=== PATIENT | male | born 1995 | race Caucasian/White ===

== ENCOUNTER 2020-01-30 16:18 | Emergency (ER) | payer OTHER, SELFPAY ==
[2020-01-30 16:28] VITALS: BP 166/74; PULSE 67; RESP 20; TEMP 37.4; O2SAT 98
--- NOTE | 2020-01-30 16:35 | ED.NECK ---
HPI - Neck Pain/Injury General Chief Complaint: Neck Pain/Injury Stated Complaint: neck pain Time Seen by Provider: 01/30/20 16:39 Source: patient and RN notes reviewed Mode of arrival: ambulatory Limitations: no limitations History of Present Illness HPI Narrative: This is a 24 years old male presents to the office for an evaluation of headache and neck pain since this morning. He has pain this morning after he exercise. Associated with headache. He did a squad weight lifting ~380slb yesterday. Today, he did a shoulder weight lift about ~150lbs weight. Denies head injury/heard any pop/noise. Denies worse headache of his life. He took 1000mg of Tylenol for pain with no relief. Related Data Allergies Allergy/AdvReac Type Severity Reaction Status Date / Time No Known Allergies Allergy Verified 01/30/20 16:39 Review of Systems Review of Systems: Narrative: CONSTITUTIONAL: Denies fever, chills EYES: Denies visual changes ENT: Denies difficulty swallowing CARDIOVASCULAR: Denies chest pain, palpitation RESPIRATORY: Denies dyspnea GASTROINTESTINAL: Denies abdominal pain, vomiting. Reports nausea. SKIN: Denies rash MUSCULOSKELETAL: Reports neck pain without numbness or tingling in extremities. NEUROLOGIC: Denies lightheaded/dizziness All other systems reviewed are negative, except as documented in HPI. PMFSH Comments At time of signature, I agree with nursing past medical, surgical, social and family history. There is no relevant family history pertinent to the presenting complaint. Exam Narrative: Exam Narrative: GENERAL: This is a well-nourished, well-developed patient, in no apparent distress. NECK: No surface trauma, open wounds, soft tissue or muscle tenderness or spasm.Nontender over larynx. No bony tenderness, step-off or deformity to firm palpation at the posterior midline. FROM without limitation or pain; normal flexion, extension, lateral bending, rotation and axial load. CARDIOVASCULAR: Regular rate and rhythm without murmurs, gallops, or rubs. RESPIRATORY: Clear to auscultation. Breath sounds equal bilaterally. No wheezes, rales, or rhonchi. GASTROINTESTINAL: Abdomen soft, non-tender, nondistended. Bowel sounds are active. No hepato-splenomegaly, or palpable masses. No guarding. SKIN: warm, intact with no suspicious lesions or rash, good texture and turgor. NEURO: awake, alert, and oriented to person, place and time. There were no obvious focal neurologic abnormalities. Steady gait EXTREMITIES: Normal range of motion. No edema. BACK: midline without tenderness over the vertebra. [place] Coma Scale Eye Opening: Spontaneous 4 [place] Coma Scale Motor: Obeys Commands 6 [place] Coma Scale Verbal: Oriented 5 Course Vital Signs Vital signs: Vital Signs Temperature 99.3 F 01/30/20 16:28 Pulse Rate 67 01/30/20 16:28 Respiratory Rate 20 01/30/20 16:28 Blood Pressure 166/74 H 01/30/20 16:28 Pulse Oximetry 98 01/30/20 16:28 Temperature 99.3 F 01/30/20 16:28 Pulse Rate 67 01/30/20 16:28 Respiratory Rate 01/30/20 16:28 Blood Pressure 166/74 H 01/30/20 16:28 Pulse Oximetry 98 01/30/20 16:28 MDM - Neck Pain/Injury MDM Narrative Medical decision making narrative: Elevated BP noted: patient is informed that they may have pre-hypertension or hypertension based on a blood pressure reading in the department. I recommend the patient call the primary care provider listed on their discharge instructions or a physician of their choice this week to arrange follow-up for further evaluation of possible pre-hypertension or hypertension within 1-2week. Discharge instructions reviewed with patient, as well as provided in writing per nursing staff. The instructions also include specific and strict return/GO TO THE ER as well as f/u information. All questions have been answered, and the patient deny any further questions with discharge and discharge plan. Differential Diagnosis Differential
== END 2020-01-30 17:05 | disposition home or self-care (01) ==
PROVIDERS: Emergency Provider Nurse Practitioner
DX: S16.1XXA Strain of muscle, fascia and tendon at neck level, initial encounter (principal); X50.0XXA Overexertion from strenuous movement or load, initial encounter; Y93.B3 Activity, free weights
CPT/HCPCS: 99213; G0463